=== PATIENT | female | born 1965 | race Caucasian/White ===

== ENCOUNTER 2016-06-24 07:55 | Day surgery (SDC) | payer OTHER ==
[~2016-06-24] VITALS: Ht 172.7 cm; Wt 97.1 kg
[~2016-06-24 07:55] MED LIST: ABILIFY5 MG PO; ALLOPURINOL100 MG PO; AVONEX PEN30 MCG/0.1 IM; BUTALBITAL COM1 EAC1 PO; CALCIUM 600 +1 EAC4 PO; CALCIUM 600 MG1 EACH PO; CALICUM 500+D1 EACH PO; CARDIZEM30 MG PO; CENTRUM SILVER1 EAC4 PO; CIPRO500 MG PO; CLONAZEPAM0.5 MG PO; CLONIDINE HCL0.2 MG PO; COPAXONE40 MG/1 ML SC; CYANOCOBAL1000 MCG/2 IM; CYANOCOBALAM1000 MCG PO; DAILY VITAMIN1 EAC8 PO; DILAUDID4 MG PO; DIVALPROEX SOD125 M1 PO; DOLOPHINE HCL5 MG PO; DURAGESIC50 MCG TD; ENDOCET 7.5-321 EACH PO; ERGOCALCIF50000 UNIT PO; ESCITALOPRAM OX20 MG PO; EXALGO8 MG PO; Ecotrin PO; FIORICET,ESG1 TABLET PO; FLEXERIL10 MG PO; FLEXERIL5 MG PO; FOLIC ACID1 MG PO; FUROSEMIDE20 MG PO; HYDROCODON-ACE1 EA12 PO; IBUPROFEN800 MG PO; IMITREX6 MG/0.52 SC; IMITREX6 MG/0.53 SC; K-DUR10 MEQ PO; KEFLEX500 MG PO; KENALOG,ARISTOC80 GM TP; KLONOPIN0.25 M1 PO; KLONOPIN0.5 M1 PO; LAMISIL250 MG PO; LASIX20 MG PO; LEXAPRO20 MG PO; LIQUID B-11000 MCG/1 IM; LUNESTA2 MG PO; LYRICA50 MG PO; MECLIZINE HCL12.5 M1 PO; MELOXICAM7.5 MG PO; METHADONE5 MG PO; METOPROLOL SUCC25 MG PO; METOPROLOL TART25 MG PO; MICRO-K10 ME2 PO; MOBIC7.5 MG PO; MORPHINE SULFAT15 M1 PO; MOTRIN600 MG PO; MOTRIN800 MG PO; MULTI COMPLETE1 EACH PO; NADOLOL20 MG PO; NAMENDA XR28 MG PO; NAPROSYN500 MG PO; NEXIUM40 MG PO; NITROFURANTOIN100 MG PO; NITROFURANTOIN50 MG PO; ONDANSETRON HCL4 MG PO; PANTOPRAZOLE SO40 MG PO; PERCOCET 5/31 TABLET PO; PLEGRIDY P125 MCG/0. SC; PROAIR HFA8.5 GM IH; PROAIR RESPICL90 MCG IH; PROTONIX IV40 MG IV; PROTONIX40 MG PO; REGLAN10 MG PO; RELPAX40 MG PO; REQUIP1 MG PO; SIMVASTATIN10 MG PO; TECFIDERA240 MG PO; TIZANIDINE HCL2 M1 PO; TOLTERODINE TART4 MG PO; TOPIRAMATE ER200 MG PO; TOPROL XL25 MG PO; TRAZODONE HCL50 MG PO; TROKENDI XR100 MG PO; TROKENDI XR200 MG PO; TROKENDI XR25 MG PO; TROKENDI XR50 MG PO; VERAPAMIL HCL240 MG PO; WELLBUTRIN SR150 MG PO; WELLBUTRIN75 MG PO; ZANAFLEX2 M1 PO; ZOCOR10 MG PO; ZOFRAN4 MG PO
== END 2016-06-24 09:00 | disposition home or self-care (01) ==
LOC: PAIN 07:55 → SDC 08:15 → PAIN 09:00
PROC: 3E0S33Z Introduction of Anti-inflammatory into Epidural Space, Percutaneous Approach (ICD-10-PCS; principal; 2016-06-24)
DX: M50.123 Cervical disc disorder at C6-C7 level with radiculopathy (principal); F41.9 Anxiety disorder, unspecified; M12.88 Other specific arthropathies, not elsewhere classified, other specified site; M48.02 Spinal stenosis, cervical region; G35 Multiple sclerosis; K21.9 Gastro-esophageal reflux disease without esophagitis; E78.5 Hyperlipidemia, unspecified; Z68.32 Body mass index [BMI] 32.0-32.9, adult; Z88.8 Allergy status to other drugs, medicaments and biological substances; Z91.09 Other allergy status, other than to drugs and biological substances
CPT/HCPCS: J1030; J2250; J3010

== ENCOUNTER 2016-07-11 03:40 | Emergency (ER) | payer OTHER ==
[~2016-07-11] VITALS: Ht 175.3 cm; Wt 99.1 kg
[2016-07-11 07:36] LABS: HEMATOCRIT 41.7 % (36.0-46.0); MCH 29.6 PG (29.0-34.0); MCHC 31.9 G/DL (30.0-36.0); MCV 92.9 FL (83-99); PLATELET COUNT 231 K/uL (156-360); RBC DIS.WIDTH-CV 13.2 % (11.8-14.6); RBC DIS.WIDTH-SD 44.8 % (39-53); RED BLOOD COUNT 4.49 M/uL (3.80-5.20); WHITE BLOOD COUNT 7.3 K/uL (4.1-10.2)
[2016-07-11 08:16] LABS: ANION GAP 6 MEQ/L (2-14); CHLORIDE 112 MEQ/L (99-109); GFR ESTIMATE (CALCULATED) > 59 mL/min/; GLUCOSE 101 mg/dL (70-99); POTASSIUM 4.3 MEQ/L (3.7-5.4); SAMPLE HEMOLYSIS CHECK 0; SAMPLE ICTERIC CHECK 0; SAMPLE LIPEMIA CHECK 0; SODIUM 142 MEQ/L (136-147); UREA NITROGEN (BUN) 18 mg/dL (9-23)
[2016-07-11] MEDS ORDERED: STADOL NASAL2.5 ML NS (08:43)
[2016-07-11 09:14] VITALS: BP 121/75
== END 2016-07-11 09:23 | disposition home or self-care (01) ==
LOC: EME 03:40
PROVIDERS: Emergency Medicine
DX: G43.909 Migraine, unspecified, not intractable, without status migrainosus (principal); M79.1 Myalgia; J45.909 Unspecified asthma, uncomplicated; G89.29 Other chronic pain; Z79.891 Long term (current) use of opiate analgesic
CPT/HCPCS: 80048; 85027; 99281; 99285; J0780; J1100; J1200; J1630; J1885; J3475; J7030

== ENCOUNTER 2016-07-27 12:29 | Day surgery (SDC) | payer OTHER ==
[~2016-07-27] VITALS: Ht 172.7 cm; Wt 98.6 kg
[~2016-07-27 12:29] MED LIST changes: +STADOL NASAL2.5 ML NS
== END 2016-07-27 14:27 | disposition home or self-care (01) ==
LOC: PAIN 12:29 → SDC 13:00 → PAIN 13:00
PROC: 3E0S33Z Introduction of Anti-inflammatory into Epidural Space, Percutaneous Approach (ICD-10-PCS; principal; 2016-07-27)
DX: M50.123 Cervical disc disorder at C6-C7 level with radiculopathy (principal); F41.9 Anxiety disorder, unspecified; M12.88 Other specific arthropathies, not elsewhere classified, other specified site; M48.02 Spinal stenosis, cervical region; G35 Multiple sclerosis; K25.9 Gastric ulcer, unspecified as acute or chronic, without hemorrhage or perforation; G47.00 Insomnia, unspecified; G43.909 Migraine, unspecified, not intractable, without status migrainosus; F32.9 Major depressive disorder, single episode, unspecified; G56.00 Carpal tunnel syndrome, unspecified upper limb; K21.9 Gastro-esophageal reflux disease without esophagitis; E78.5 Hyperlipidemia, unspecified; E66.9 Obesity, unspecified; Z68.32 Body mass index [BMI] 32.0-32.9, adult; Z88.8 Allergy status to other drugs, medicaments and biological substances
CPT/HCPCS: J1030; J2250; J3010

== ENCOUNTER 2016-08-14 12:23 | Emergency (ER) | payer OTHER ==
[~2016-08-14] VITALS: Ht 172.7 cm; Wt 95.7 kg
[2016-08-14 14:12] LABS: BASOPHIL COUNT 0.1 K/uL (0-0.1); EOSINOPHIL (%) 0.6 % (0-5); HEMATOCRIT 40.2 % (36.0-46.0); IMMATURE GRANULOCYTE (%) 0.2 % (0.0-0.7); INSTRUMENT ABS NEUTROPHIL CT 2.6 K/uL; LYMPHOCYTE COUNT 2.5 K/uL (1.0-2.8); MCH 29.4 PG (29.0-34.0); MCHC 32.3 G/DL (30.0-36.0); MEAN PLAT.VOLUME 11.1 uM^3 (9.5-12.4); MONOCYTE (%) 5.2 % (3-12); MONOCYTE COUNT 0.3 K/uL (0-0.8); NEUTROPHIL (%) 47.6 % (45-76); NEUTROPHIL COUNT 2.6 K/uL (1.8-6.4); PLATELET COUNT 236 K/uL (156-360); RBC DIS.WIDTH-CV 13.3 % (11.8-14.6); RBC DIS.WIDTH-SD 44.8 % (39-53); RED BLOOD COUNT 4.42 M/uL (3.80-5.20); WHITE BLOOD COUNT 5.4 K/uL (4.1-10.2)
[2016-08-14 14:20] LABS: CHLORIDE 113 mEq/L (99-109); SODIUM 141 mEq/L (136-147)
[2016-08-14 14:22] LABS: GLUCOSE 104 mg/dL (70-99)
[2016-08-14 14:24] LABS: ANION GAP 8 MEQ/L (2-14)
[2016-08-14 14:26] LABS: GFR ESTIMATE (CALCULATED) > 59 mL/min/
[2016-08-14 14:27] LABS: UREA NITROGEN (BUN) 16 mg/dL (9-23)
[2016-08-14 16:04] LABS: APPEARANCE CLEAR/COLORLESS
[2016-08-14 16:11] LABS: RED CELL AREA COUNTED 18; RED CELL COUNT 17 /MM^3 (0-1); RED CELL DILUTION 1; WBC AREA COUNTED 18; WBC DILUTION 1; WHITE CELL COUNT 0 /MM^3 (0-5); WHITE CELL RAW COUNT 0
[2016-08-14 16:15] LABS: CSF EOSINOPHILS 0 % (0-25); MONO RAW COUNT 2; MONONUCLEAR WBC'S 100 % (50-90); POLYNUCLEAR WBC'S 0 % (0-3)
[2016-08-14 16:29] LABS: APPEARANCE (RECHECK) CLEAR/COLORLESS; CSF TUBE NUMBER (RECHECK) TUBE #4; RED CELL AREA COUNTED 18; RED CELL COUNT (RECHECK) 4 /MM^3 (0-1); RED CELL DILUTION 1
[2016-08-14 17:51] LABS: ADD MIUA? NO; BILIRUBIN NEGATIVE; BLOOD NEGATIVE; COLOR YELLOW ((YELLOW)); GLUCOSE (STRIP) NEGATIVE; KETONES NEGATIVE; LEUKOCYTES NEGATIVE; NITRITE NEGATIVE; PROTEIN (STRIP) NEGATIVE; SPECIFIC GRAVITY 1.008 (1.000-1.030); UCUL ADDED? NO; UROBILINOGEN 0.2 MG/DL (0.2-1.0)
[2016-08-14 17:52] LABS: INTERNAL CONTROL VALID? YES
[2016-08-14 18:40] VITALS: BP 121/78
== END 2016-08-14 18:41 | disposition home or self-care (01) ==
LOC: EME 12:23
PROVIDERS: Emergency Medicine
PROC: 009U3ZX Drainage of Spinal Canal, Percutaneous Approach, Diagnostic (ICD-10-PCS; principal; 2016-08-14)
DX: G43.909 Migraine, unspecified, not intractable, without status migrainosus (principal); B34.9 Viral infection, unspecified; G35 Multiple sclerosis; J45.909 Unspecified asthma, uncomplicated; I48.0 Paroxysmal atrial fibrillation; Z86.61 Personal history of infections of the central nervous system
CPT/HCPCS: 80048; 81003; 82945; 84157; 84703; 85025; 87070; 87205; 89051; 99281; 99284; J0780; J2270; J2405; J2765; J7030

== ENCOUNTER 2016-09-13 23:20 | Observation (INO) | payer OTHER ==
[~2016-09-13] VITALS: Ht 172.7 cm; Wt 99.1 kg
[2016-09-13 23:48] LABS: HEMATOCRIT 39.1 % (36.0-46.0); MCHC 32.7 G/DL (30.0-36.0); MCV 91.8 FL (83-99); MEAN PLAT.VOLUME 10.8 uM^3 (9.5-12.4); PLATELET COUNT 250 K/uL (156-360); RBC DIS.WIDTH-CV 13.1 % (11.8-14.6); RBC DIS.WIDTH-SD 43.8 % (39-53); RED BLOOD COUNT 4.26 M/uL (3.80-5.20); WHITE BLOOD COUNT 6.7 K/uL (4.1-10.2)
[2016-09-13 23:58] LABS: CHLORIDE 110 mEq/L (99-109); SODIUM 143 mEq/L (136-147)
[2016-09-13 23:59] LABS: GLUCOSE 111 mg/dL (70-99)
[2016-09-14 00:01] LABS: ANION GAP 10 MEQ/L (2-14)
[2016-09-14 00:03] LABS: GFR ESTIMATE (CALCULATED) > 59 mL/min/
[2016-09-14 00:04] LABS: UREA NITROGEN (BUN) 14 mg/dL (9-23)
[2016-09-14 00:09] LABS: TROP-I INTERPRETATION NEGATIVE; TROPONIN-I < 0.01 ng/mL (0.0-0.30)
[2016-09-14 01:03] LABS: INTER. NORMALIZED RATIO 1.1; PROTHROMBIN TIME 11.2 (9.2-11.2); PTT 27.9 (25-32)
[2016-09-14] MEDS ORDERED: TOPAMAX200 MG PO (04:21)
[2016-09-14 05:49] VITALS: BP 118/66
[2016-09-14 06:49] LABS: D-DIMER ELISA 1.06 mg/L FEU (< 0.57)
[2016-09-14 07:10] LABS: TROP-I INTERPRETATION NEGATIVE; TROPONIN-I < 0.01 ng/mL (0.0-0.30)
[2016-09-14 09:15] VITALS: BP 128/71
[2016-09-14] MEDS ORDERED: TROKENDI XR200 MG PO (12:01)
[2016-09-14] MEDS ORDERED: TRAZODONE HCL100 MG PO (12:02)
[2016-09-14] MEDS ORDERED: PROMETHAZINE12.5 M1 PO (12:03)
[2016-09-14] MEDS ORDERED: STADOL NASAL2.5 ML NS (12:03)
[2016-09-14] MEDS ORDERED: FIORICET,ESG1 TABLET PO (12:04)
[2016-09-14 12:06] VITALS: BP 114/58
[2016-09-14 13:05] LABS: TROP-I INTERPRETATION NEGATIVE; TROPONIN-I < 0.01 ng/mL (0.0-0.30)
[2016-09-14] MEDS ORDERED: TORADOL10 MG PO (14:47)
== END 2016-09-14 15:10 | disposition home or self-care (01) ==
LOC: EME 23:20 → EDOF 09-14 03:45 → 5WEST 09-14 05:38
PROVIDERS: Emergency Medicine; Internal Medicine
DX: R07.89 Other chest pain (principal); G35 Multiple sclerosis; I10 Essential (primary) hypertension; K21.9 Gastro-esophageal reflux disease without esophagitis
CPT/HCPCS: 71020; 71275; 80048; 84484; 85027; 85379; 85610; 85730; 93005; 99202; G0378; J1644; J2270; J2405; J7030

== ENCOUNTER 2016-10-15 08:28 | Day surgery (SDC) | payer OTHER ==
[~2016-10-15] VITALS: Ht 172.7 cm; Wt 96.2 kg
[~2016-10-15 08:28] MED LIST changes: +PROMETHAZINE12.5 M1 PO; +TOPAMAX200 MG PO; +TORADOL10 MG PO; +TRAZODONE HCL100 MG PO
[2016-10-15] MEDS ORDERED: ASPIRIN325 MG PO (09:47)
== END 2016-10-15 17:50 | disposition home or self-care (01) ==
LOC: CATH 08:28
PROC: 4A023N7 Measurement of Cardiac Sampling and Pressure, Left Heart, Percutaneous Approach (ICD-10-PCS; principal; 2016-10-15)
PROC: B2111ZZ Fluoroscopy of Multiple Coronary Arteries using Low Osmolar Contrast (ICD-10-PCS; principal; 2016-10-15)
PROC: B2151ZZ Fluoroscopy of Left Heart using Low Osmolar Contrast (ICD-10-PCS; principal; 2016-10-15)
DX: I25.10 Atherosclerotic heart disease of native coronary artery without angina pectoris (principal); G35 Multiple sclerosis; E66.9 Obesity, unspecified; Z82.49 Family history of ischemic heart disease and other diseases of the circulatory system; Z68.32 Body mass index [BMI] 32.0-32.9, adult; R55 Syncope and collapse; Z79.891 Long term (current) use of opiate analgesic; Z88.8 Allergy status to other drugs, medicaments and biological substances; Z83.3 Family history of diabetes mellitus; Z82.5 Family history of asthma and other chronic lower respiratory diseases; Z82.3 Family history of stroke
CPT/HCPCS: C1769; C1887; J1644; J2250; J3010

== ENCOUNTER 2016-12-20 05:20 | Observation (INO) | payer OTHER ==
[~2016-12-20] VITALS: Ht 172.7 cm; Wt 100.0 kg
[~2016-12-20 05:20] MED LIST changes: +ASPIRIN325 MG PO
[2016-12-20 13:01] LABS: BASOPHIL COUNT 0.1 K/uL (0-0.1); EOSINOPHIL (%) 5.2 % (0-5); EOSINOPHIL COUNT 0.3 K/uL (0-0.3); HEMATOCRIT 38.2 % (36.0-46.0); IMMATURE GRANULOCYTE (%) 0.2 % (0.0-0.7); INSTRUMENT ABS NEUTROPHIL CT 2.2 K/uL; LYMPHOCYTE COUNT 3.2 K/uL (1.0-2.8); MCH 29.7 PG (29.0-34.0); MCHC 32.2 G/DL (30.0-36.0); MCV 92.3 FL (83-99); MEAN PLAT.VOLUME 12.2 uM^3 (9.5-12.4); MONOCYTE (%) 7.6 % (3-12); MONOCYTE COUNT 0.5 K/uL (0-0.8); NEUTROPHIL (%) 35.4 % (45-76); NEUTROPHIL COUNT 2.2 K/uL (1.8-6.4); PLATELET COUNT 186 K/uL (156-360); RBC DIS.WIDTH-SD 43.9 % (39-53); RED BLOOD COUNT 4.14 M/uL (3.80-5.20); WHITE BLOOD COUNT 6.3 K/uL (4.1-10.2)
[2016-12-20 13:11] LABS: CHLORIDE 111 mEq/L (99-109); POTASSIUM 3.8 mEq/L (3.7-5.4); SODIUM 142 mEq/L (136-147)
[2016-12-20 13:12] LABS: GLUCOSE 86 mg/dL (70-99)
[2016-12-20 13:14] LABS: ANION GAP 8 MEQ/L (2-14)
[2016-12-20 13:16] LABS: GFR ESTIMATE (CALCULATED) > 59 mL/min/
[2016-12-20 13:17] LABS: UREA NITROGEN (BUN) 10 mg/dL (9-23)
[2016-12-20] MEDS ORDERED: LO-DOSE ASPIRIN81 M1 PO (13:22)
[2016-12-20] MEDS ORDERED: LEXAPRO10 MG PO (13:23)
[2016-12-20] MEDS ORDERED: ZANAFLEX2 MG PO (13:26)
[2016-12-20] MEDS ORDERED: WELLBUTRIN XL150 MG PO (13:27)
[2016-12-20] MEDS ORDERED: CRESTOR10 MG PO (13:27)
[2016-12-20 14:00] VITALS: BP 120/56
[2016-12-20 14:25] VITALS: BP 132/64
[2016-12-20 20:00] VITALS: BP 121/72
[2016-12-21] VITALS: BP 99/56
[2016-12-21 00:28] VITALS: BP 128/70
[2016-12-21 03:24] VITALS: BP 102/58
[2016-12-21 07:38] VITALS: BP 94/58
[2016-12-21 12:13] VITALS: BP 103/56
[2016-12-21 16:00] VITALS: BP 105/61
== END 2016-12-21 18:48 | disposition home or self-care (01) ==
LOC: EME 05:20 → EDOF 13:02 → 5WEST 13:02 → ENRESERV 13:07 → EDOF 13:07 → ENRESERV 13:27 → 5WEST 14:02
PROVIDERS: Emergency Medicine
DX: G43.901 Migraine, unspecified, not intractable, with status migrainosus (principal); G35 Multiple sclerosis; Z79.891 Long term (current) use of opiate analgesic; I10 Essential (primary) hypertension; K21.9 Gastro-esophageal reflux disease without esophagitis; Z88.8 Allergy status to other drugs, medicaments and biological substances
CPT/HCPCS: 70450; 80048; 80048 91; 85025; 99281; 99285; G0378; J1200; J1650; J1885; J2270; J2405; J2765; J3010; J7030; J7050; S0028

== ENCOUNTER 2017-02-24 09:49 | Day surgery (SDC) | payer OTHER ==
[~2017-02-24] VITALS: Ht 172.7 cm; Wt 95.3 kg
[~2017-02-24 09:49] MED LIST changes: +CRESTOR10 MG PO; +ENDOCET 10-3251 EACH PO; +LEXAPRO10 MG PO; +LO-DOSE ASPIRIN81 M1 PO; +WELLBUTRIN XL150 MG PO; +ZANAFLEX2 MG PO
== END 2017-02-24 11:37 | disposition home or self-care (01) ==
LOC: PAIN 09:49 → SDC 10:15 → PAIN 11:37
DX: M53.3 Sacrococcygeal disorders, not elsewhere classified (principal); M46.1 Sacroiliitis, not elsewhere classified; J45.909 Unspecified asthma, uncomplicated; I10 Essential (primary) hypertension; I34.0 Nonrheumatic mitral (valve) insufficiency
CPT/HCPCS: J1030; J2250; J3010; S0020

== ENCOUNTER 2017-03-28 10:16 | Day surgery (SDC) | payer OTHER ==
[~2017-03-28] VITALS: Ht 172.7 cm; Wt 95.3 kg
[~2017-03-28 10:16] MED LIST changes: +DESYREL100 MG PO; -TRAZODONE HCL100 MG PO
== END 2017-03-28 12:46 | disposition home or self-care (01) ==
LOC: PAIN 10:16 → SDC 10:45 → PAIN 10:45
DX: M51.16 Intervertebral disc disorders with radiculopathy, lumbar region (principal); M54.5 Low back pain; G89.29 Other chronic pain; M79.1 Myalgia; M54.12 Radiculopathy, cervical region; M48.02 Spinal stenosis, cervical region; J45.20 Mild intermittent asthma, uncomplicated; G35 Multiple sclerosis; E78.5 Hyperlipidemia, unspecified; E66.9 Obesity, unspecified; Z68.31 Body mass index [BMI] 31.0-31.9, adult; F41.8 Other specified anxiety disorders; K21.9 Gastro-esophageal reflux disease without esophagitis; Z79.82 Long term (current) use of aspirin
CPT/HCPCS: J1030; J2250; J3010; S0020

== ENCOUNTER 2017-04-04 09:23 | Day surgery (SDC) | payer OTHER ==
[~2017-04-04] VITALS: Ht 172.7 cm; Wt 95.3 kg
== END 2017-04-04 11:05 | disposition home or self-care (01) ==
LOC: PAIN 09:23 → SDC 10:00 → PAIN 10:00
DX: M47.26 Other spondylosis with radiculopathy, lumbar region (principal); M51.16 Intervertebral disc disorders with radiculopathy, lumbar region; M54.5 Low back pain; G89.29 Other chronic pain; M54.12 Radiculopathy, cervical region; M48.02 Spinal stenosis, cervical region; K21.9 Gastro-esophageal reflux disease without esophagitis; E78.5 Hyperlipidemia, unspecified; J45.909 Unspecified asthma, uncomplicated; Z79.82 Long term (current) use of aspirin; Z79.891 Long term (current) use of opiate analgesic; G35 Multiple sclerosis
CPT/HCPCS: J1030; J2250; J3010; S0020

== ENCOUNTER 2017-07-10 03:51 | Observation (INO) | payer OTHER ==
[~2017-07-10] VITALS: Ht 172.7 cm; Wt 95.2 kg
[2017-07-10 04:33] LABS: HEMATOCRIT 40.5 % (36.0-46.0); HEMOGLOBIN 13.2 G/DL (11.9-15.5); MCH 30.8 PG (29.0-34.0); MCHC 32.6 G/DL (30.0-36.0); MCV 94.4 FL (83-99); PLATELET COUNT 225 K/uL (156-360); RBC DIS.WIDTH-CV 12.7 % (11.8-14.6); RBC DIS.WIDTH-SD 44.1 % (39-53); RED BLOOD COUNT 4.29 M/uL (3.80-5.20); WHITE BLOOD COUNT 6.2 K/uL (4.1-10.2)
[2017-07-10 04:41] LABS: CHLORIDE 108 mEq/L (99-109); SODIUM 140 mEq/L (136-147)
[2017-07-10 04:42] LABS: GLUCOSE 101 mg/dL (70-99)
[2017-07-10 04:46] LABS: CREATININE 1.1 mg/dL (0.6-1.3); GFR ESTIMATE (CALCULATED) 55 mL/min/
[2017-07-10 04:47] LABS: UREA NITROGEN (BUN) 22 mg/dL (9-23)
[2017-07-10 05:15] LABS: TOTAL BILIRUBIN 0.4 mg/dL (0.0-1.0)
[2017-07-10 05:27] LABS: TROP-I INTERPRETATION NEGATIVE; TROPONIN-I < 0.01 ng/mL (0.0-0.30)
[2017-07-10 05:32] LABS: ALBUMIN 4.6 g/dL (3.2-4.8)
[2017-07-10 05:35] LABS: TOTAL PROTEIN 7.8 g/dL (6.4-8.3)
[2017-07-10 05:38] LABS: ALKALINE PHOSPHATASE 63 IU/L (3-129)
[2017-07-10 05:40] LABS: AST (GOT) 15 IU/L (2-34); DIRECT BILIRUBIN 0.2 mg/dL (0.0-0.3)
[2017-07-10 05:41] LABS: ALT (GPT) 17 IU/L (3-49)
[2017-07-10 05:42] LABS: LIPASE 40 U/L (1.0-51.0)
[2017-07-10 09:34] LABS: D-DIMER ELISA < 150.00 ng/mLDDU (<230)
[2017-07-10 10:57] LABS: HDL CHOLESTEROL 63 MG/DL (Desirable>=50); LDL CHOLESTEROL 68 mg/dL (Desirable<100); NON-HDL CHOLESTEROL 76 mg/dL (Desirable<160); TOTAL CHOLESTEROL 139 mg/dL (Desirable<200); TRIGLYCERIDES 38 MG/DL (Normal: <150)
[2017-07-10 11:07] VITALS: BP 125/72
[2017-07-10 14:41] LABS: TROP-I INTERPRETATION NEGATIVE; TROPONIN-I < 0.01 ng/mL (0.0-0.30)
[2017-07-10 16:18] VITALS: BP 110/61
[2017-07-10 19:30] VITALS: BP 110/60
[2017-07-10 20:12] LABS: TROP-I INTERPRETATION NEGATIVE; TROPONIN-I < 0.01 ng/mL (0.0-0.30)
[2017-07-10 23:53] VITALS: BP 109/57
[2017-07-11 03:21] VITALS: BP 110/59
[2017-07-11 07:41] VITALS: BP 99/60
== END 2017-07-11 09:59 | disposition home or self-care (01) ==
LOC: EME 03:51 → EDOF 08:36 → ENRESERV 08:38 → EDOF 08:56 → ENRESERV 09:46 → 5WEST 11:01 → ENPENDDIS 07-11 08:25 → 5WEST 07-11 09:59
PROVIDERS: Hospitalist
DX: R07.89 Other chest pain (principal); R06.02 Shortness of breath; G35 Multiple sclerosis; G43.909 Migraine, unspecified, not intractable, without status migrainosus; M54.2 Cervicalgia; F41.9 Anxiety disorder, unspecified; F32.9 Major depressive disorder, single episode, unspecified; Z79.82 Long term (current) use of aspirin; Z82.49 Family history of ischemic heart disease and other diseases of the circulatory system; M79.645 Pain in left finger(s); R11.0 Nausea
CPT/HCPCS: 71046; 80048; 80061; 80076; 83690; 84484; 85027; 85379; 93005; 99281; 99285; G0378; J0780; J1200; J1650; J1885; J2270; J7030; S0028

== ENCOUNTER 2017-07-24 22:08 | Emergency (ER) | payer OTHER ==
[~2017-07-24] VITALS: Ht 172.7 cm; Wt 94.4 kg
[2017-07-25 02:11] LABS: HEMATOCRIT 41.4 % (36.0-46.0); HEMOGLOBIN 13.5 G/DL (11.9-15.5); MCH 30.4 PG (29.0-34.0); MCHC 32.6 G/DL (30.0-36.0); MCV 93.2 FL (83-99); PLATELET COUNT 266 K/uL (156-360); RBC DIS.WIDTH-CV 12.8 % (11.8-14.6); RBC DIS.WIDTH-SD 44.1 % (39-53); RED BLOOD COUNT 4.44 M/uL (3.80-5.20); WHITE BLOOD COUNT 7.9 K/uL (4.1-10.2)
[2017-07-25 02:19] LABS: CHLORIDE 108 mEq/L (99-109); POTASSIUM 3.6 mEq/L (3.7-5.4); SODIUM 143 mEq/L (136-147)
[2017-07-25 02:20] LABS: GLUCOSE 86 mg/dL (70-99)
[2017-07-25 02:24] LABS: GFR ESTIMATE (CALCULATED) > 59 mL/min/
[2017-07-25 02:25] LABS: UREA NITROGEN (BUN) 19 mg/dL (9-23)
[2017-07-25 02:31] LABS: TROP-I INTERPRETATION NEGATIVE; TROPONIN-I < 0.01 ng/mL (0.0-0.30)
[2017-07-25 05:42] VITALS: BP 107/64
== END 2017-07-25 05:44 | disposition home or self-care (01) ==
LOC: EME 22:08
PROVIDERS: Emergency Medicine
DX: G43.909 Migraine, unspecified, not intractable, without status migrainosus (principal); E86.0 Dehydration; G35 Multiple sclerosis; F41.0 Panic disorder [episodic paroxysmal anxiety]; Z79.82 Long term (current) use of aspirin; Z79.891 Long term (current) use of opiate analgesic; Z86.69 Personal history of other diseases of the nervous system and sense organs; Z87.442 Personal history of urinary calculi; Z86.61 Personal history of infections of the central nervous system; Z98.890 Other specified postprocedural states; Z88.8 Allergy status to other drugs, medicaments and biological substances
CPT/HCPCS: 70450; 71046; 80048; 84484; 85027; 93005; 99281; 99285; J1100; J1200; J1885; J2765; J7030

== ENCOUNTER 2017-09-03 00:18 | Emergency (ER) | payer OTHER ==
[~2017-09-03] VITALS: Ht 172.7 cm; Wt 95.6 kg
[2017-09-03 01:51] LABS: HEMATOCRIT 40.6 % (36.0-46.0); HEMOGLOBIN 13.5 G/DL (11.9-15.5); MCH 30.7 PG (29.0-34.0); MCHC 33.3 G/DL (30.0-36.0); MCV 92.3 FL (83-99); RBC DIS.WIDTH-CV 12.8 % (11.8-14.6); RBC DIS.WIDTH-SD 43.7 % (39-53); WHITE BLOOD COUNT 6.1 K/uL (4.1-10.2)
[2017-09-03 02:06] LABS: CHLORIDE 112 mEq/L (99-109); POTASSIUM 3.9 mEq/L (3.7-5.4); SODIUM 143 mEq/L (136-147)
[2017-09-03 02:07] LABS: GLUCOSE 86 mg/dL (70-99)
[2017-09-03 02:11] LABS: GFR ESTIMATE (CALCULATED) > 59 mL/min/
[2017-09-03 02:12] LABS: UREA NITROGEN (BUN) 15 mg/dL (9-23)
[2017-09-03 02:26] LABS: APPEARANCE CLEAR ((CLEAR)); BILIRUBIN NEGATIVE; BLOOD NEGATIVE; COLOR YELLOW ((YELLOW)); GLUCOSE (STRIP) NEGATIVE; KETONES NEGATIVE; LEUKOCYTES NEGATIVE; NITRITE NEGATIVE; PROTEIN (STRIP) NEGATIVE; SPECIFIC GRAVITY 1.015 (1.000-1.030); UROBILINOGEN 0.2 MG/DL (0.2-1.0)
[2017-09-03] MEDS ORDERED: NAPROSYN500 MG PO (03:01)
[2017-09-03] MEDS ORDERED: IMITREX50 MG PO (03:01)
[2017-09-03] MEDS ORDERED: REGLAN10 MG PO (03:01)
[2017-09-03 03:11] LABS: PLAT.SUFFICIENCY ADEQUATE; PLATELET COUNT 250 K/uL (156-360)
[2017-09-03 03:22] VITALS: BP 118/64
== END 2017-09-03 03:25 | disposition home or self-care (01) ==
LOC: EME 00:18
PROVIDERS: Physician Assistant
DX: G43.909 Migraine, unspecified, not intractable, without status migrainosus (principal); R19.7 Diarrhea, unspecified; R11.2 Nausea with vomiting, unspecified; G35 Multiple sclerosis; Z88.8 Allergy status to other drugs, medicaments and biological substances
CPT/HCPCS: 80048; 81003; 85027; 99281; 99285; J1100; J1200; J1885; J2765; J3030; J7030

== ENCOUNTER 2017-09-19 10:55 | Day surgery (SDC) | payer OTHER ==
[~2017-09-19] VITALS: Ht 172.7 cm; Wt 95.2 kg
[~2017-09-19 10:55] MED LIST changes: +IMITREX50 MG PO; +PROVIGIL100 MG PO
== END 2017-09-19 13:04 | disposition home or self-care (01) ==
LOC: PAIN 10:55 → SDC 11:15 → PAIN 11:15
DX: M51.16 Intervertebral disc disorders with radiculopathy, lumbar region (principal); M48.061 Spinal stenosis, lumbar region without neurogenic claudication; G89.29 Other chronic pain; M50.90 Cervical disc disorder, unspecified, unspecified cervical region; F41.8 Other specified anxiety disorders; K21.9 Gastro-esophageal reflux disease without esophagitis; E78.5 Hyperlipidemia, unspecified; J45.20 Mild intermittent asthma, uncomplicated; Z79.891 Long term (current) use of opiate analgesic; Z79.82 Long term (current) use of aspirin
CPT/HCPCS: J1100; J2250

== ENCOUNTER 2017-10-17 09:10 | Day surgery (SDC) | payer OTHER ==
[~2017-10-17] VITALS: Ht 172.7 cm; Wt 95.2 kg
== END 2017-10-17 10:20 | disposition home or self-care (01) ==
LOC: PAIN 09:10 → SDC 09:30 → PAIN 09:30
DX: M54.16 Radiculopathy, lumbar region (principal); M51.36 Other intervertebral disc degeneration, lumbar region; M99.83 Other biomechanical lesions of lumbar region; M46.96 Unspecified inflammatory spondylopathy, lumbar region; G35 Multiple sclerosis; M79.1 Myalgia; G89.29 Other chronic pain; M50.90 Cervical disc disorder, unspecified, unspecified cervical region; Z98.1 Arthrodesis status; F41.9 Anxiety disorder, unspecified; F32.9 Major depressive disorder, single episode, unspecified; Z79.82 Long term (current) use of aspirin; Z88.8 Allergy status to other drugs, medicaments and biological substances; Z91.048 Other nonmedicinal substance allergy status
CPT/HCPCS: J1100; J2250